=== PATIENT | female | born 1980 | race Caucasian/White ===

== ENCOUNTER 2018-06-25 05:41 | Emergency (ER) | payer BC, OTHER ==
[~2018-06-25] VITALS: Ht 167.6 cm; Wt 88.0 kg
[~2018-06-25 05:41] MED LIST: CHOL20009 PO; MULTTAB PO
[2018-06-25 06:05] VITALS: Ht 167.6 cm; Wt 88.0 kg
--- NOTE | 2018-06-25 06:06 | EMERGENCY ROOM VISIT NOTE ---
History Report prepared by Sil: Danette Hunter Under the Supervision of: Dr. Adrienne Gipson D.O. First contact with patient: 05:49 Chief Complaint: RAPID HEART RATE Stated Complaint: RAPID HEART RATE History of Present Illness The patient is a 37 year old female who presents to the Emergency Room with complaints of a rapid heart rate beginning at 0300 this morning. She states she was already out of bed because of her dog and when she went back to sleep, her heart began beating rapidly. She describes the feeling as "her heart beating deep into her chest cavity" but denies any chest pain. She reports she had an ablation done in September for tachycardia and she has had similar episodes in the past. 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 The patient denies anything new other than finding out recently that she has to put her dog down, which she believes could be the cause of her episode. Her LNMP was 2 weeks field captain. Source of History: patient Onset: 0300 this morning Position: chest Quality: other ("her heart beating deep into her chest cavity") Timing: other (after finding out she has to put her dog down) Associated Symptoms: No chest pain Review of Systems See HPI for pertinent positives & negatives. A total of 10 systems reviewed and were otherwise negative. Past Medical & Surgical Medical Problems: (1) Heart disease Surgical Problems: (1) S/P ablation Family History Cancer Diabetes mellitus Heart disease Lung disease Social History Smoking Status: Never Smoker Smokeless Tobacco Use: No Alcohol Use: none Marital Status: Housing Status: lives with family Occupation Status: employed Current/Historical Medications Scheduled Cholecalciferol (Vitamin D), 2,000 UNITS PO DAILY Multivitamins/Minerals (Mvi With Minerals), 1 TAB PO DAILY Allergies Coded Allergies: Dairy (Verified Allergy, Unknown, SHORTNESS OF BREATH, 06/25/18) NASAL STUFFINESS Penicillins (Verified Allergy, Unknown, unknown, 06/25/18) Physical Exam Vital Signs Date Time Temp Pulse Resp B/P (MAP) Pulse Ox O2 Delivery O2 Flow Rate FiO2 06/25/18 06:05 90 19 104/76 99 Room Air 06/25/18 05:57 96 06/25/18 05:50 98 Room Air Physical Exam HEENT: Head - normocephalic and atraumatic Pupils are equal, round, and reactive to light. Extraocular eye muscles are intact, and sclera are anicteric. Nose - moist nasal mucosa without discharge. Mouth - moist buccal mucosa. Oropharynx is nonerythematous and there is no tonsillar exudate or edema noted. Neck: Supple; no JVD, nuchal rigidity, cervical lymphadenopathy. Heart: Regular rate and rhythm. There is a normal S1 and S2 with no murmurs, clicks, or gallops appreciated. Lungs: Clear to auscultation bilaterally with no wheezes, rales, or rhonchi. Abdomen: Soft, completely nontender, nondistended, with good bowel sounds. There are no palpable pulsatile masses or hepatosplenomegaly. There is no guarding, rigidity, or rebound noted. Extremities: No evidence of cyanosis, clubbing, or edema. There are easily palpable peripheral pulses. Skin: warm and dry with good turgor and no rashes. Medical Decision & Procedures Laboratory Results 06/25/18 06:02 06/25/18 06:02 Test 06/25/18 06:02 Red Blood Count 4.64 M/uL (4.2-5.4) Mean Corpuscular Volume 89.9 fL (80-100) Mean Corpuscular Hemoglobin 29.5 pg (25-34) Mean Corpuscular Hemoglobin Concent 32.9 g/dl (32-36) RDW Standard Deviation 45.4 fL (36.4-46.3) RDW Coefficient of Variation 13.8 % (11.5-14.5) Mean Platelet Volume 9.7 fL (7.4-10.4) Anion Gap 7.0 mmol/L (3-11) Est Creatinine Clear Calc Drug Dose 122.3 ml/min Estimated GFR () 127.1 Estimated GFR (Non- 109.7 BUN/Creatinine Ratio 20.4 (10-20) Calcium Level 9.1 mg/dl (8.5-10.1) Troponin I < 0.015 ng/ml (0-0.045) Thyroid Stimulating Hormone (TSH) 2.160 uIu/ml (0.300-4.500) Chemistry Specimen Hemolysis Laboratory results per my review. ECG Per My Interpretation Indication: other (rapid heart rate) Rate (beats per minute): 95 Rhythm: normal sinus Findings: no ectopy, other ( prolonged QT at 485 milliseconds, no ST segment changes ) Comparison ECG Date: Compared to prior, the QT is longer Change: no significant change (04/27/2012) ED Course 0550: Past medical records reviewed. The patient was evaluated in room A10. A complete history and physical exam was performed. A 12-lead EKG was obtained as described above. The patient was observed on the nurse monitoring and pulse oximeter. IV lock was initiated and lab are drawn as above. 0647: Upon reevaluation, the patient is more comfortable. There is no reoccurrence of her tachycardia. I discussed findings and results with her. She verbalized agreement of the treatment plan. She was discharged home. Medical Decision The patient is a 37 year old female who presents to the Emergency Room with complaints of a rapid heart rate beginning at 0300 this morning. Differential diagnosis includes exacerbation of tachycardia, cardiac dysrhythmia, thyroid dysfunction, electrolyte abnormality, anxiety, as well as others were entertained. Lab results show Normal WBC Normal H and H Normal TSH and Troponin Glucose 101 This is a 37-year-old female patient who presents to the emergency department after an episode of tachycardia at home. Patient has a history of tachycardia with previous ablation. On today's 12-lead EKG, the patient has a prolonged QT. This is a new finding from previous EKGs. I have explained this to her. I have asked her not to start any new medications. I suggested that she contact Dr. Obando this morning with regards to this visit. The patient admits that she has been under significant stress and this could be the cause of her symptoms. I instructed the patient to return here to the emergency department if she had worsening symptoms or other associated symptoms with episodes of tachycardia. Medication Reconcilliation Current Medication List: was personally reviewed by me Blood Pressure Screening Patient's blood pressure: Normal blood pressure Blood pressure disposition: Did not require urgent referral Impression Primary Impression: Tachycardia Scribe Attestation The scribe's documentation has been prepared under my direction and personally reviewed by me in its entirety. I confirm that the note above accurately reflects all work, treatment, procedures, and medical decision making performed by me. Departure Information Dispostion Home / Self-Care Referrals Kayce Fuentes M.D. (PCP) Forms HOME CARE DOCUMENTATION FORM, IMPORTANT VISIT INFORMATION, WORK / SCHOOL INSTRUCTIONS Patient Instructions My [facility] Additional Instructions Rest. Minimize stress and anxiety. Avoid caffeine. Do not start any new meds. Return to the ER if symptoms worsen. Follow up with Cardiology today.
[2018-06-25 06:11] LABS: HEMATOCRIT 41.7 % (37-47); HEMOGLOBIN 13.7 g/dL (12.0-16.0); MEAN CELL VOLUME 89.9 fL (80-100); MEAN CORPUSCULAR HEMOGLOBIN 29.5 pg (25-34); MEAN CORPUSCULAR HGB CONC 32.9 g/dl (32-36); MEAN PLATELET VOLUME 9.7 fL (7.4-10.4); PLATELET COUNT 393 K/uL (130-400); RED CELL DISTRIBUTION WIDTH CV 13.8 % (11.5-14.5); RED CELL DISTRIBUTION WIDTH SD 45.4 fL (36.4-46.3); WHITE BLOOD COUNT 7.34 K/uL (4.8-10.8)
[2018-06-25 06:28] LABS: BLOOD UREA NITROGEN 14 mg/dl (7-18); CALCIUM 9.1 mg/dl (8.5-10.1); CARBON DIOXIDE 26 mmol/L (21-32); CREATININE 0.69 mg/dl (0.60-1.20); GLUCOSE 101 mg/dl (70-99); POTASSIUM 3.5 mmol/L (3.5-5.1); SODIUM 138 mmol/L (136-145)
[2018-06-25 07:15] VITALS: BP 102/68; PULSE 79; O2SAT 98
== END 2018-06-25 07:16 | disposition home or self-care (01) ==
LOC: C.EDB 05:42 → C.EDA 07:16
DX: R00.0 Tachycardia, unspecified (principal); I51.9 Heart disease, unspecified; Z98.890 Other specified postprocedural states; Z91.011 Allergy to milk products; Z88.0 Allergy status to penicillin